=== PATIENT | female | born 1995 | race Caucasian/White ===

== ENCOUNTER 2020-03-28 11:32 | Emergency (ER) | payer OTHER ==
[~2020-03-28] VITALS: Ht 157.5 cm; Wt 57.2 kg
[2020-03-28 11:38] VITALS: BP 124/75
--- NOTE | 2020-03-28 11:40 | NUR ---
PATIENT PRESENTS TO ED WITH C/O SORE THROAT AND COLD SX SINCE YESTERDAY . PT STATES SHE HAS COUGH, BODY ACHES AND EAR ACHES . DENIES N/V/D; SKIN IS PINK/WARM/DRY; AAOX4 WITH EVEN AND STEADY GAIT; LUNGS CLEAR BL; HR EVEN AND REGULAR; PT DENIES ANY FEVER, CP, SOB, OR COUGH AT THIS TIME; PATIENT STATES PAIN OF 0/10 AT THIS TIME; VSS; PATIENT POSITIONED FOR COMFORT; HOB ELEVATED; BEDRAILS UP X2; BED DOWN. ER MD MADE AWARE OF PT STATUS.
--- NOTE | 2020-03-28 11:42 | NUR ---
Patient ambulated to bed 8.
--- NOTE | 2020-03-28 11:50 | NUR ---
DR JARA AT BEDSIDE FOR EXAM
[2020-03-28] MEDS ORDERED: AMOXIL/CLAVULANATE 875/125 MG 1 TAB PO ONE (12:00)
[2020-03-28] MEDS ORDERED: ONDANSETRON 4 MG ODT PO ONE (12:00)
[2020-03-28] MEDS ORDERED: KETOROLAC 30 MG/ML VIAL IM ONE (12:00)
--- NOTE | 2020-03-28 12:29 | NUR ---
IV removed, catheter intact and site benign. Applied folded 2X2 gauze and secured with tape to stop bleeding. Patient tolerated well.
--- NOTE | 2020-03-28 12:29 | NUR ---
Humberto de leon in EDM - 03/28/20 at 1229 by [facility] IV removed, catheter intact and site benign. Applied folded 2X2 gauze and secured with tape to stop bleeding. Patient tolerated well.
[2020-03-28 12:32] VITALS: BP 124/75
--- NOTE | 2020-03-28 12:32 | NUR ---
Patient discharged with v/s stable. Written and verbal after care instructions given and explained. Patient alert, oriented and verbalized understanding of instructions. Ambulatory with steady gait. All questions addressed prior to discharge. ID band removed. Patient advised to follow up with PMD. Rx of ZOFRAN, AUGMENTIN, FLUTICASONE NASAL SPRAY given. Patient educated on indication of medication including possible reaction and side effects. Opportunity to ask questions provided and answered.
== END 2020-03-28 12:32 | disposition home or self-care (01) ==
LOC: MED 11:32
DX: H66.91 Otitis media, unspecified, right ear (principal); B34.9 Viral infection, unspecified; Z20.828 Contact with and (suspected) exposure to other viral communicable diseases
CPT/HCPCS: 81002; 81025; 96372; 99283; J1885; Q0162; U0003

== ENCOUNTER 2020-04-15 14:23 | Emergency (ER) | payer OTHER ==
[~2020-04-15] VITALS: Ht 157.5 cm; Wt 65.8 kg
[2020-04-15 14:36] VITALS: BP 122/65
--- NOTE | 2020-04-15 14:46 | NUR ---
LAB AT TRIAGE ROOM.
--- NOTE | 2020-04-15 14:47 | NUR ---
WAIT AT LOBBY.
[2020-04-15 15:02] LABS: BASOPHILS % (AUTO) 0.3 % (0.0-2.0); EOSINOPHILS # (AUTO) 0.2 K/uL (0-0.4); EOSINOPHILS % (AUTO) 2.8 % (0.0-4.0); HEMATOCRIT 32.4 % (36-48); HEMOGLOBIN 10.6 g/dL (12.0-16.0); LYMPHOCYTES # (AUTO) 1.6 K/uL (2.5-16.5); LYMPHOCYTES % (AUTO) 24.2 % (20.5-51.1); MEAN CORPUSCULAR HEMOGLOBIN 26 pg (27-31); MEAN CORPUSCULAR HGB CONC 33 g/dL (33-37); MEAN CORPUSCULAR VOLUME 77.8 fL (80-94); MONOCYTES # (AUTO) 0.6 K/uL (0.8-1.0); MONOCYTES % (AUTO) 8.7 % (1.7-9.3); NEUTROPHILS # (AUTO) 4.3 K/uL (1.8-7.7); PLATELET COUNT (AUTO) 332 K/uL (140-450); RED BLOOD CELL COUNT(AUTO) 4.16 MIL/uL (4.20-5.40); RED CELL DISTRIBUTION WIDTH 16.4 % (11.6-13.7); WHITE BLOOD COUNT (AUTO) 6.7 K/uL (4.8-10.8)
--- NOTE | 2020-04-15 15:05 | NUR ---
Patient ambulated to bed 12 with steady gait, given gown to change into
[2020-04-15 15:06] LABS: APPEARANCE,URINE CLEAR (CLEAR); BILIRUBIN,URINE NEGATIVE (NEGATIVE); BLOOD, URINE NEGATIVE (NEGATIVE); COLOR,URINE YELLOW (YELLOW); LEUKOCYTE ESTERASE ,URINE 1+ (NEGATIVE); NITRITE, URINE NEGATIVE (NEGATIVE); UGLUCOSE NEGATIVE (NEGATIVE)
--- NOTE | 2020-04-15 15:10 | NUR ---
Pt c/o headache, nausea/vomiting, abd cramping x 4 days with vaginal discharge containing bright red blood this morning. Pt states she is approx 7 wks . Last BM today. States she is taking vitamins. VSS
--- NOTE | 2020-04-15 15:18 | NUR ---
Ultrasound at bedside
[2020-04-15] MEDS ORDERED: ONDANSETRON 4 MG/2 ML VIAL IVP ONE (15:20)
[2020-04-15] MEDS ORDERED: NACL 0.9% 1,000 ML IV ONE (15:20)
[2020-04-15] MEDS ORDERED: ACETAMINOPHEN EXTRA STRENGTH 500 MG TAB PO ONE (15:20)
[2020-04-15 15:49] LABS: RBC,URINE 0-5 /HPF (0-5)
--- NOTE | 2020-04-15 16:06 | NUR ---
22G IV placed to left hand with good blood return
[2020-04-15] MEDS ORDERED: cephALEXin 500 MG CAP PO ONE (16:40)
[2020-04-15 17:43] VITALS: BP 122/65
--- NOTE | 2020-04-15 17:43 | NUR ---
IV d/c and 2x2 gauze placed to IV site.
--- NOTE | 2020-04-15 17:44 | NUR ---
Patient discharged with v/s stable. Written and verbal after care instructions given and explained. Patient alert, oriented and verbalized understanding of instructions. Ambulatory with steady gait. All questions addressed prior to discharge. ID band removed. Patient advised to follow up with PMD. Rx of Keflex 500mg, Pyridoxine 25mg and zofran 4mg given. Patient educated on indication of medication including possible reaction and side effects. Opportunity to ask questions provided and answered.
--- NOTE | 2020-04-18 10:53 | NUR ---
late entry -- NS completed 04/15.
== END 2020-04-15 17:44 | disposition home or self-care (01) ==
LOC: MED 14:23
DX: O20.8 Other hemorrhage in early pregnancy (principal); O23.41 Unspecified infection of urinary tract in pregnancy, first trimester; Z79.899 Other long term (current) drug therapy; Z3A.01 Less than 8 weeks gestation of pregnancy
CPT/HCPCS: 36415; 76817; 81001; 81025; 84702; 85025; 86900; 86901; 87086; 96361; 96374; 99284; J2405; J7030

== ENCOUNTER 2020-05-27 13:09 | Emergency (ER) | payer OTHER ==
[~2020-05-27] VITALS: Ht 157.5 cm; Wt 61.2 kg
[2020-05-27 14:36] VITALS: BP 129/84
--- NOTE | 2020-05-27 14:37 | NUR ---
triaged and waiting in tent.
[2020-05-27] MEDS ORDERED: ACETAMINOPHEN EXTRA STRENGTH 500 MG TAB PO ONE (14:50)
[2020-05-27 15:10] VITALS: BP 129/84
--- NOTE | 2020-05-27 15:12 | NUR ---
Patient discharged with v/s stable. Written and verbal after care instructions given and explained. Patient alert, oriented and verbalized understanding of instructions. Ambulatory with steady gait. All questions addressed prior to discharge. ID band removed. Patient advised to follow up with PMD. Rx of flonase, tylenol given. Patient educated on indication of medication including possible reaction and side effects. Opportunity to ask questions provided and answered.
== END 2020-05-27 15:12 | disposition home or self-care (01) ==
LOC: MED 13:09
DX: R51.9 Headache, unspecified (principal); Z20.828 Contact with and (suspected) exposure to other viral communicable diseases
CPT/HCPCS: 99283; U0003

== ENCOUNTER 2020-07-30 17:36 | Emergency (ER) | payer OTHER ==
[~2020-07-30] VITALS: Ht 157.5 cm; Wt 63.5 kg
[2020-07-30 17:38] VITALS: BP 146/94
--- NOTE | 2020-07-30 17:48 | NUR ---
Ambulated to bed 9
[2020-07-30] MEDS ORDERED: HYDROcodone/APAP 5/325 MG 1 TAB TAB PO ONE (17:55)
--- NOTE | 2020-07-30 17:58 | NUR ---
PELVIC SET UP AT BED SIDE. PA NOTIFIED
--- NOTE | 2020-07-30 18:03 | NUR ---
25 Y/O FEMALE C/O [id number] OF VERY DARK BROWN DISCHARGE AND VERY FOUL URINE. PT STATES N/V, FATIGUE. PT ALSO C/O PRESSURE-LIKE PAIN 11/24 TOOK IBUPROFEN WITH MINMAL RELIEF. PT STATES SHE HAD AN 04/2020. PT ALSO STATES HER BOYFRIEND RECENTLY TOLD HER HE IS HIV+ AND HAS HERPES. LMP 07/16/20 PMH: IN APRIL, C-SECTIONSX2 NKA
--- NOTE | 2020-07-30 18:07 | NUR ---
ERLINDA Walsh at pt bedside for further evaluation.
[2020-07-30] MEDS ORDERED: ONDANSETRON 4 MG ODT ONE (18:08)
[2020-07-30] MEDS ORDERED: ONDANSETRON 4 MG ODT PO ONE (18:10)
--- NOTE | 2020-07-30 18:13 | NUR ---
Pt ambulated to restroom for UA collection.
--- NOTE | 2020-07-30 18:38 | NUR ---
Female Chemical Equipment Repairer accompanied female patient for Pelvic Exam.
--- NOTE | 2020-07-30 18:44 | NUR ---
ERLINDA Walsh collected vaginal specimens during pelvic exam, walked to lab.
[2020-07-30] MEDS ORDERED: AZITHROMYCIN 250 MG TAB PO ONE (18:45)
[2020-07-30] MEDS ORDERED: cefTRIAXone 250 MG in LIDOCAINE MPF 1% 0.9 ML IM ONE (18:45)
[2020-07-30] MEDS ORDERED: METR500T1 PO (18:51)
[2020-07-30] MEDS ORDERED: NAPR-54 PO (18:53)
[2020-07-30 18:56] LABS: APPEARANCE,URINE CLEAR (CLEAR); BILIRUBIN,URINE NEGATIVE (NEGATIVE); BLOOD, URINE 1+ (NEGATIVE); COLOR,URINE YELLOW (YELLOW); LEUKOCYTE ESTERASE ,URINE NEGATIVE (NEGATIVE); NITRITE, URINE NEGATIVE (NEGATIVE); UGLUCOSE NEGATIVE (NEGATIVE)
[2020-07-30] MEDS ORDERED: LIDOCAINE MPF 1% 5 ML ONE (18:56)
[2020-07-30] MEDS ORDERED: cefTRIAXone 250 MG VIAL ONE (18:56)
[2020-07-30 19:13] VITALS: BP 146/94
--- NOTE | 2020-07-30 19:14 | NUR ---
Patient discharged with v/s stable. Written and verbal after care instructions given and explained. Patient alert, oriented and verbalized understanding of instructions. Ambulatory with steady gait. All questions addressed prior to discharge. ID band removed. Patient advised to follow up with PMD. Rx of FLAGYL 500MG BID PRN PAIN FOR 10DAYS, AND NAPROXEN 500MG PO BID PRN PAIN given. Patient educated on indication of medication including possible reaction and side effects. Opportunity to ask questions provided and answered.
[2020-07-30 19:21] LABS: RBC,URINE 11-20 (MOD) /HPF (0-5)
== END 2020-07-30 19:14 | disposition home or self-care (01) ==
LOC: MED 17:36
DX: N76.0 Acute vaginitis (principal); Z20.2 Contact with and (suspected) exposure to infections with a predominantly sexual mode of transmission; Z79.899 Other long term (current) drug therapy; Z98.890 Other specified postprocedural states
CPT/HCPCS: 36415; 81001; 81025; 87086; 87210; 96372; 99284; J0696; J2001; Q0162; 87491

== ENCOUNTER 2021-03-30 09:33 | Emergency (ER) | payer MEDICAID, OTHER ==
[~2021-03-30] VITALS: Ht 157.5 cm; Wt 61.2 kg
[~2021-03-30 09:33] MED LIST: METR500T1 PO; NAPR-54 PO
[2021-03-30 09:37] VITALS: BP 139/90
[2021-03-30] MEDS ORDERED: ONDANSETRON 4 MG/2 ML VIAL IVP ONE (10:05)
[2021-03-30] MEDS ORDERED: diphenhydrAMINE 50 MG/ML VIAL IVP ONE (10:05)
[2021-03-30] MEDS ORDERED: KETOROLAC 30 MG/ML VIAL IVP ONE (10:05)
[2021-03-30] MEDS ORDERED: NACL 0.9% 1,000 ML IV ONE (10:05)
--- NOTE | 2021-03-30 10:40 | NUR ---
25 Y/O F BIB SELF FROM HOME, PATIENT PRESENTS TO ED WITH HEADACHE, WEAKNESS, LIGHTHEADED, WITH N&V THAT STARTED YESTERDAY MORNING. PT STATES SHE HAS ALSO BEEN HAVING CHILLS WITH RUNNY NOSE. DENIES HEMATURIA, DYSURIA, OR ANYONE ELSE SICK IN HOUSEHOLD; SKIN IS PINK/WARM/DRY; AAOX4 WITH EVEN AND STEADY GAIT; LUNGS CLEAR BL; HR EVEN AND REGULAR; PT DENIES ANY FEVER, SOB, OR COUGH AT THIS TIME; PATIENT STATES PAIN OF 8/10 AT THIS TIME; VSS; PATIENT POSITIONED FOR COMFORT; HOB ELEVATED; BEDRAILS UP X2; BED DOWN. ER MD MADE AWARE OF PT STATUS. PMH: DENIES NKA MED: DENIES
--- NOTE | 2021-03-30 10:40 | NUR ---
LABS, NOVEL AND FLU SAMPLES TAKEN AND GIVEN TO LAB PHLEB YUSUF.
[2021-03-30] MEDS: DEXTROSE 10% 250 ML IV SCH ×6 (11:20→13:50)
--- NOTE | 2021-03-30 11:50 | NUR ---
PT WAS GIVEN ICE CHIPS, TOLERATED WELL. GIVEN APPLE JUICE AND CRACKERS, TOLERATED WELL.
--- NOTE | 2021-03-30 12:29 | NUR ---
PER [facility], DISCONTINUED D5 AFTER GLUCOSE RESOLVED FROM 60 TO 123 POST FOOD. PT TOLERATED APPLE SAUCE, JELLO AND PUDDING. NO NAUSEA TO REPORT AT THIS TIME
[2021-03-30 13:32] LABS: APPEARANCE,URINE BLOODY (CLEAR); BILIRUBIN,URINE NEGATIVE (NEGATIVE); BLOOD, URINE 3+ (NEGATIVE); COLOR,URINE RED (YELLOW); NITRITE, URINE POSITIVE (NEGATIVE); PH,URINE 6.5 (5.0-9.0); UGLUCOSE TRACE (NEGATIVE)
[2021-03-30 13:35] LABS: RBC,URINE TOO NUMEROUS TO COUN /HPF (0-5)
[2021-03-30 13:50] LABS: LEUKOCYTE ESTERASE ,URINE 1+ (NEGATIVE); WBC,URINE 0-5 /HPF (0-5)
[2021-03-30] MEDS ORDERED: IBUP-2213 PO (14:15)
[2021-03-30] MEDS ORDERED: ONDA-188 SL (14:15)
[2021-03-30] MEDS ORDERED: CEPH-588 PO (14:15)
[2021-03-30 14:37] VITALS: BP 135/84
--- NOTE | 2021-03-30 14:39 | NUR ---
Patient discharged with v/s stable. Written and verbal after care instructions given N/V, HEADACHE, AND UTI and explained. Patient alert, oriented and verbalized understanding of instructions. Ambulatory with steady gait. All questions addressed prior to discharge. ID band removed. Patient advised to follow up with PMD. Rx of KEFLEX, IBUPROFEN, AND ZOFRAN given. Patient educated on indication of medication including possible reaction and side effects. Opportunity to ask questions provided and answered.
== END 2021-03-30 14:38 | disposition home or self-care (01) ==
LOC: MED 09:33
DX: R51.9 Headache, unspecified (principal); R11.2 Nausea with vomiting, unspecified; N39.0 Urinary tract infection, site not specified; Z20.822 Contact with and (suspected) exposure to COVID-19; Z79.1 Long term (current) use of non-steroidal anti-inflammatories (NSAID); Z79.2 Long term (current) use of antibiotics
CPT/HCPCS: 81001; 81025; 87086; 87804; 96374; 96375; 99284; J1200; J1885; J2405; J7030; U0003